=== PATIENT | male | born 1970 | race Caucasian/White ===

== ENCOUNTER 2024-01-01 16:20 | Emergency (ER) | payer MEDICARE, SELFPAY ==
[2024-01-01] VITALS (22 sets, daily range): BP systolic 169–209; BP diastolic 85–114; PULSE 62–92; RESP 18–20; TEMP 36.6–36.7; O2SAT 95–98
--- NOTE | ~2024-01-01 | XR_ITS ---
XR chest 1V portable 01/01/2024 17:12 Indication: Dizziness. Procedure: AP portable chest Comparison: 12/06/2013 Findings: Borderline heart size. No focal air space disease, pulmonary edema, pleural effusion or sherley pected pneumothorax. Impression: 1: No acute cardiopulmonary disease. Reviewed, dictated and finalized at location B. Impression: 1: No acute cardiopulmonary disease.
--- NOTE | 2024-01-01 16:55 | ECG_ITS ---
Test Date: 2024-01-01 17:14:13 Measurements Intervals [place] Rate: 88 P: 45 RI: 197 QRS: -28 QRSD: 111 T: 114 QT: 394 QTc: 478 Interpretive Statements SINUS RHYTHM LEFT VENTRICULAR HYPERTROPHY AND ST-T CHANGE [VOLTAGE CRITERIA PLUS ST/T ABNORMALITY] POSSIBLE ANTERIOR MYOCARDIAL INFARCTION , PROBABLY OLD [30 ms Q WAVE IN V3/V4, OR R < 0.2 mV IN V4] No previous ECG available for comparison Electronically Signed On 01-04-2024 10:38:46 CDT by Kenyon Alcocer M.D.
--- NOTE | 2024-01-01 17:05 | ED.GENADULT ---
HPI - General Adult General Chief complaint: Dizziness Stated complaint: dizzy History of Present Illness HPI narrative: Harris is a 53M with a PMH of prediabetes, hypertension, hyperlipidemia and morbid obesity that presented to the ED with concerns of dizziness. He had one episode 2 days ago for a few minutes where the world was waving and and another episode of vertigo yesterday. However, when he woke up today it was much worse. The world is waving or spinning, he feels unsteady. Today he has nausea, feel lightheaded and had near syncope. Symptoms are worse when he stands or moves his head. No exertional chest pain and no dyspnea at rest. Related Data Home Medications Medication Instructions Recorded Confirmed amlodipine 10 mg tablet 10 mg PO DAILY 01/01/24 01/01/24 lisinopril 40 mg tablet 40 mg PO DAILY 01/01/24 01/01/24 metformin 500 mg tablet 500 mg PO BID 01/01/24 01/01/24 rosuvastatin 10 mg tablet 10 mg PO DAILY 01/01/24 01/01/24 Allergies Allergy/AdvReac Type Severity Reaction Status Date / Time No Known Allergies Allergy Verified 01/01/24 17:40 Review of Systems Review of Systems: All systems reviewed & are unremarkable except as noted in HPI and below Exam Const: General: cooperative, comfortable, no acute distress, well developed, alert and awake Orientation/consciousness: oriented to person, oriented to place and oriented to time Other: Morbidly obese HENMT: Head: normal to inspection, normocephalic and atraumatic Ears: hearing grossly normal bilaterally and external ears normal Face/Nose/Sinus: Normal external nose present Other: TM wnl bilaterally Eyes: General: appearance normal, both eyes and all related structures Periorbital: periorbital findings normal Sclera: sclerae normal Pupils: Equal, round and reactive pupils present Neck: Neck: normal visual inspection Chest: Chest palpation & inspection: normal inspection of the chest Resp: Effort & Inspection: normal respiratory effort, able to speak in complete sentences and no respiratory distress Auscultation: clear to auscultation bilaterally Cardio: Jugular venous distension: no JVD Rate: regular rate Rhythm: regular rhythm GI: Inspection: normal to inspection GI Palp: Yes Soft to palpation Auscultation: normal bowel sounds Skin: General skin exam: normal color and no rashes or lesions noted Neuro: General: oriented to person, oriented to place and oriented to time Cranial nerves: Yes Equal, round and reactive pupils present Other: Abnormal HINTS exam: he had bilateral horizontal nystagmus as well as superior vertical nystagmus. He had a corrective saccade on the head impulse as well as well. Normal finger to nose however. Extrem: General: normal to inspection Course Course Emergency Course: Ordered labs, CXR and EKG. He cannot have a CT at this facility as he is over the weight limit. EKG showed NSR with a rate of 88, LAD, left ventricular hypertrophy but no ST elevation. QTC of 440 Called pharmacy to start labetalol at 0.5mg/min for suspected hypertensive encephalopathy, however, his BP dropped to 180/s on its own so PO labetolol was given instead. CXR chest 1V portable 01/01/2024 17:12 Indication: Dizziness. Procedure: AP portable chest Comparison: 12/06/2013 Findings: Borderline heart size. No focal air space disease, pulmonary edema, pleural effusion or suspected pneumothorax. Impression: 1: No acute cardiopulmonary disease. As labs, CXR were unremarkable and his BP was dropping we tried to do head imaging but his size prohibits it at this facility. We contacted [facility] and got Dr. Raman of neuro that accepted for Dr. Ruiz. DDx includes hypertensive encephalopathy, CVA, BPPV with cardiac causes being less likely Vital Signs Vital signs: Vital Signs Temperature 98.0 F 01/01/24 16:29 Pulse Rate 92 01/01/24 16:29 Respiratory Rate 20 01/01/24 16:29 Blood Pressure 206/110 H 01/01/24 16:
[2024-01-01] MEDS: Please add drug allergy info to patient profile. XX (17:44)
--- NOTE | 2024-01-01 17:45 | PC.NURSE ---
PER DR RIVERA HOLD STARTING LABETALOL B/P NOW 185/91
[2024-01-01 17:51] LABS: Basophils Absolute Auto 0.03 K/mm3 (0.00-0.10); Basophils Percent Auto 0.4 % (0.0-1.0); Eosinophils Absolute Auto 0.08 K/mm3 (0.02-0.50); Hemoglobin 15.3 g/dL (14.0-18.0); Immature Granulocyte Absolute 0.05 K/mm3 (0.00-0.00); Immature Granulocyte Percent A 0.6 % (0.0-0.0); Lymphocytes Absolute Auto 1.81 K/mm3 (1.10-4.50); Lymphocytes Percent Auto 22.8 % (18.0-42.0); Mean Corpuscular HGB Conc 31.9 g/dL (32-36); Mean Corpuscular Hemoglobin 28.5 pg (27.0-31.0); Mean Corpuscular Volume 89.6 fL (78.0-102.0); Mean Platelet Volume 10.1 fl (8.7-11.0); Neutrophils Absolute Auto 5.58 K/mm3 (1.70-7.20); Neutrophils Percent Auto 70.2 % (50.0-70.0); Platelet Count Result 159 K/mm3 (150-420); Red Blood Count 5.36 M/mm3 (4.70-6.10); Red Cell Distribution Width 13.6 % (11.6-14.4)
[2024-01-01] MEDS: METOPROLOL TARTRATE 50 MG TAB PO (18:24)
[2024-01-01 18:44] LABS: Alanine Aminotransferase 31 U/L (16-63); Albumin Level 3.4 g/dL (3.4-5.0); Alkaline Phosphatase 75 U/L (46-116); Anion Gap 9 mmol/L (4-12); Aspartate Amino Transferase 32 U/L (15-37); Bilirubin,Total 0.6 mg/dL (0.00-1.00); Blood Urea Nitrogen 12 mg/dL (7-18); Calcium 8.5 mg/dL (8.5-10.1); Carbon Dioxide 29 mmol/L (21-32); Chloride 98 mmol/L (98-108); Estimated CRCL calculation 128 ml/min; Estimated Glomerular Filt Rate > 60; Glucose 226 mg/dL (70-99); NT Pro B Type Natriuretic Pept 61 pg/mL (0-125); Osmolality Calculated 288 mOsm/kg (285-295); Potassium 3.7 mmol/L (3.5-5.1); Sodium 136 mmol/L (136-145); Thyroid Stimulating Hormone 1.42 uIU/mL (0.36-3.74); Total Protein 7.7 g/dL (6.4-8.2); Troponin I 11.7 ng/L (0.00-60.4)
--- NOTE | 2024-01-01 19:09 | PC.NURSE ---
Pt girth measured for possible transfer to [facility] for head CT. Pts girth measures of 60 and is upwards of 70+ inches, won't be able to use [facility] for CT head.
--- NOTE | 2024-01-01 19:35 | PC.NURSE ---
Malathi Walters from [facility] called back and took triage report. Updated pts VS given and will await for call back for bed to neuro.
--- NOTE | 2024-01-01 20:15 | PC.NURSE ---
Pt assisted to w/c and taken to BR to urinate. Pt was able to transfer per self to w/c and toilet and back to bed. Pt tolerated well and he states he feels less dizzy than when he originally came in. VSS, continuing to monitor and await for bed placement at [place]. Paperwork signed for transfer.
--- NOTE | 2024-01-01 21:50 | PC.NURSE ---
Pt resting, given pillow for comfort, no needs voiced at this time. Explained to pt and his daughter waiting for bed assignment and unknown time for transfer. Call [facility] at side, pt watching TV.
--- NOTE | 2024-01-01 21:57 | PC.NURSE ---
Call back from [facility], spoke to Selena and bed assignment given. Pt to go to Bed [id number] at [facility].
== END 2024-01-01 22:23 | disposition short-term general hospital (02) ==
PROVIDERS: Emergency Provider Family Medicine; PCP Nurse Practitioner
DX: R42 Dizziness and giddiness (principal); I10 Essential (primary) hypertension; E78.5 Hyperlipidemia, unspecified; Z79.899 Other long term (current) drug therapy; Z79.84 Long term (current) use of oral hypoglycemic drugs
CPT/HCPCS: 36415; 71045; 80053; 83880; 84443; 84484; 85025; 93005; 99285; A9270